=== PATIENT | male | born 1980 | race Caucasian/White ===

== ENCOUNTER 2019-02-15 05:57 | Emergency (ER) | payer MEDICAID, OTHER ==
[~2019-02-15] VITALS: Wt 77.7 kg
[2019-02-15 05:59] VITALS: BP 133/86; PULSE 72; RESP 18
[2019-02-15] MEDS ORDERED: DIPHENHYDRAMINE 2.5 MG/ML 5ML CUP PO ONE (06:30)
[2019-02-15] MEDS ORDERED: DEXAMETHASONE 10 MG/ML 1 ML INJ IM ONE (06:30)
--- NOTE | 2019-02-15 06:35 | ERD ---
ER Documentation Chief Complaint Chief Complaint SWELLING TO RIGHT SIDE OF FACE/ LIPS X'S 1 NIGHT HPI This is a 38-year-old male with no significant past medical history presents to the ED with complaints of sudden onset right-sided facial and lip swelling this morning. Patient denies any new exposures or medications. He states it feels like "going to the dentist and having numbing medication put in." No trauma or dental pain. Denies any difficulty breathing, swallowing or any other symptoms. Denies any urinary sx. Denies any history of same. Denies any history of allergies. ROS All systems reviewed and are negative except as per history of present illness. Medications Home Meds Active Scripts Diphenhydramine Hcl* (Benadryl*) 25 Mg Cap, 25 MG PO Q6 PRN for ITCHING/RASH, #30 TAB Prov:JAGJIT BUTCHER PA-C 02/15/19 Prednisone* (Prednisone*) 20 Mg Tab, 40 MG PO DAILY for 4 Days, TAB Prov:JAGJIT BUTCHER PA-C 02/15/19 PMhx/Soc Hx Substance Use: No Hx Tobacco Use: No Smoking Status: Never smoker Physical Exam Vitals Vital Signs Date Temp Pulse Resp B/P (MAP) Pulse Ox O2 O2 Flow FiO2 Time Delivery Rate 02/15/19 97.9 72 18 133/86 100 05:59 (102) Physical Exam Const: No acute distress Head: Atraumatic Eyes: Normal Conjunctiva ENT: + right buccal swelling and upper/lower lip swelling. No tongue swelling. No trismus. Normal dentition, no evidence of an avulsed or fracture tooth. No periorbital swelling. Neck: Full range of motion. No meningismus. Resp: Clear to auscultation bilaterally Cardio: Regular rate and rhythm, no murmurs Skin: No petechiae or rashes Neur: Awake and alert Psych: Normal Mood and Affect Results 24 hrs Current Medications Medications Dose Sig/Milo Start Time Status Last (Trade) Ordered Route PRN Stop Time Admin Dose Reason Admin 25 mg ONCE ONCE 02/15/19 DC 02/15/19 Diphenhydrami PO 06:30 02/15/19 06:37 ne HCl 06:31 (Benadryl Liquid Cup) 10 mg ONCE ONCE 02/15/19 DC 02/15/19 Dexamethasone IM 06:30 02/15/19 06:37 (Decadron) 06:31 Procedures/MDM ED course: Patient was given prednisone and Decadron IM with improvement of his symptoms. MDM: This is a 38-year-old male presents to the ED with an apparent allergic reaction. No known history of allergies and no exposures. Vital signs are stable without any evidence of hypoxia or respiratory distress. Patient has no evidence of anaphylaxis or anaphylactic shock on physical exam. His symptoms stabilized status post medications as above. Discharged home with prescription for prednisone and Benadryl. Recommend follow-up at either [facility] or [facility] for possible allergy testing, referral list provided. All questions answered prior to discharge. Strict return precautions discussed. Blood Pressure Assessment: Patient's blood pressure was elevated (>120/80) but appears stable without evidence of hypertension emergency or urgency. The patient was counseled about the risks of hypertension and urged to pursue outpatient monitoring and therapy within a week with their primary care physician. Departure Diagnosis: Primary Impression: Allergic reaction Encounter type: initial encounter Qualified Codes: T78.40XA - Allergy, unspecified, initial encounter Condition: Stable Patient Instructions: First Aid: Allergic Reactions Referrals: [facility] Additional Instructions: Call your primary care doctor TOMORROW for an appointment during the next 2-4 days and bring all the information and medications prescribed. If the symptoms get worse and your provider is unavailable, return to the Emergency Department immediately. JAGJIT BUTCHER PA-C Feb 15, 2019 06:35
[2019-02-15] MEDS ORDERED: BEN25 PO (07:05)
[2019-02-15] MEDS ORDERED: PRED20TA PO (07:05)
== END 2019-02-15 07:18 | disposition home or self-care (01) ==
LOC: FTE 05:57
DX: R22.0 Localized swelling, mass and lump, head (principal); W22.09XA Striking against other stationary object, initial encounter
CPT/HCPCS: 96372; J1100; Z7502; Z7610